=== PATIENT | male | born 1975 | race American Indian/Alaskan Native ===

== ENCOUNTER 2018-11-25 09:40 | Emergency (ER) | payer OTHER ==
[2018-11-25 10:13] VITALS: BP 130/91
--- NOTE | 2018-11-25 10:35 | Cat Scan Report ---
CT head/brain wo con INDICATION: head injury; blurry vision. TECHNIQUE: Routine CT head without contrast. All CT scans at this location are performed using CT dose reduction for ALARA by means of automated exposure control. COMPARISON: None. FINDINGS: BRAIN / INTRACRANIAL CONTENTS: No acute hemorrhage, brain edema, mass effect, or hydrocephalus. Zahraa l hanna-white differentiation. No chronic infarct or focal atrophy. Normal brain volume and ventricula r/sulcal size for age. CALVARIUM/SKULL BASE/CRANIOCERVICAL JUNCTION: No evidence of fracture. ORBITS: No significant abnormality of visualized orbits. SINUSES / MASTOIDS: No significant abnormality of visualized sinuses and mastoid air cells. ADDITIONAL FINDINGS: None. IMPRESSION: 1. No acute post-traumatic intracranial abnormality. Signer Name: Lavelle Duran MD Signed: 11/25/2018 10:31 AM Workstation Name: [id number]
[2018-11-25] MEDS ORDERED: IBUPROFEN 800 MG TAB PO ONE (11:12)
[2018-11-25] MEDS ORDERED: traMADol 50 MG TAB PO ONE (11:13)
--- NOTE | 2018-11-25 11:56 | Emergency Department Report ---
ED Head Trauma HPI - General Chief complaint: Head Injury Stated complaint: FALL INJURY/HEADACHE/VISION BLURR Time Seen by Provider: 11/25/18 10:10 Source: patient Mode of arrival: Ambulatory Limitations: No Limitations - History of Present Illness Initial comments: 43-year-old male presents to ED for evaluation of head injury sustained last night. Patient's daughter last night. With this news, the patient collapsed, hitting his head on the floor. Positive LOC at the time. Patient currently complaining of headache and neck pain. He denies any nausea or vomiting. MD Complaint: head injury -: Last night Location: occipital Loss of Consciousness: yes Severity: severe Consistency: constant Provoking factors: recent /illness of f Other Injuries: neck Associated Symptoms: vision changes, vertigo, neck pain. denies: nausea, vomiting - Related Data Previous Rx's Medication Instructions Recorded Last Taken Type Butalb/Acetamin/Caff 50-325-40 1 tab PO Q6HR PRN #10 tab 11/25/18 Unknown Rx [Fioricet] Meclizine [Antivert] 25 mg PO TID PRN #20 tablet 11/25/18 Unknown Rx Naproxen [Naprosyn] 500 mg PO BID #20 tablet 11/25/18 Unknown Rx Allergies/Adverse reactions: Allergies Allergy/AdvReac Type Severity Reaction Status Date / Time No Known Allergies Allergy Unverified 11/25/18 09:48 ED Review of Systems ROS: Stated complaint: FALL INJURY/HEADACHE/VISION BLURR Other details as noted in HPI Comment: All other systems reviewed and negative Gastrointestinal: denies: nausea, vomiting Musculoskeletal: other (reports neck pain) Neurological: headache. denies: numbness, paresthesias ED Past Medical Hx - Past Medical History Previous Medical History?: No - Surgical History Past Surgical History?: Yes Hx Cholecystectomy: Yes Additional Surgical History: vasectomy - Social History Smoking Status: Never Smoker Substance Use Type: Alcohol - Medications Home Medications: Home Medications Medication Instructions Recorded Confirmed Last Taken Type Butalb/Acetamin/Caff 50-325-40 1 tab PO Q6HR PRN #10 tab 11/25/18 Unknown Rx [Fioricet] Meclizine [Antivert] 25 mg PO TID PRN #20 tablet 11/25/18 Unknown Rx Naproxen [Naprosyn] 500 mg PO BID #20 tablet 11/25/18 Unknown Rx ED Physical Exam - General Limitations: No Limitations General appearance: alert, in no apparent distress - Head Head exam: Present: atraumatic, normocephalic - Eye Eye exam: Present: normal appearance, PERRL, EOMI - ENT ENT exam: Present: mucous membranes moist - Neck Neck exam: Present: normal inspection, tenderness (mild midline tenderness), full ROM - Respiratory Respiratory exam: Present: normal lung sounds bilaterally. Absent: respiratory distress - Cardiovascular Cardiovascular Exam: Present: regular rate, normal rhythm - GI/Abdominal GI/Abdominal exam: Absent: distended - Extremities Exam Extremities exam: Present: normal inspection - Neurological Exam Neurological exam: Present: alert, oriented X3, CN II-XII intact. Absent: motor sensory deficit - Psychiatric Psychiatric exam: Present: normal affect, normal mood - Skin Skin exam: Present: warm, dry, intact, normal color ED Course Vital Signs 11/25/18 11/25/18 11/25/18 09:43 10:11 10:12 Temperature 98.5 F Pulse Rate 77 Respiratory 20 14 14 Rate Blood Pressure 131/94 Blood Pressure 130/91 [Right] O2 Sat by Pulse 96 99 Oximetry 11/25/18 11:56 Temperature Pulse Rate 90 Respiratory 18 Rate Blood Pressure Blood Pressure [Right] O2 Sat by Pulse 96 Oximetry - EKG Data -: EKG Interpreted by Sc EKG shows normal: sinus rhythm, axis, intervals, QRS complexes, ST-T waves Rate: normal Interpretation: no acute changes - Radiology Data Radiology results: report reviewed, image reviewed - Medical Decision Making 43-year-old male closed head injury last night. Head CT is negative for any intracranial injury. X-ray of C-spine is normal. Patient likely has mild concussion. Will give prescription for meclizine and Fioricet for dizziness and headache. Outpatient follow-up advised. Return precautions given. - Differential Diagnosis intracranial injury, concussion, fracture, sprain Critical care attestation.: If time is entered above; I have spent that time in minutes in the direct care of this critically ill patient, excluding procedure time. ED Disposition Clinical Impression: Closed head injury, Acute cervical myofascial strain Disposition: -01 TO HOME OR SELFCARE Is pt being admited?: No Condition: Stable Instructions: Muscle Strain (ED), Concussion (ED), Minor Head Injury (ED) Prescriptions: Meclizine [Antivert] 25 mg PO TID PRN #20 tablet PRN Reason: Vertigo Butalb/Acetamin/Caff 50-325-40 [Fioricet] 1 tab PO Q6HR PRN #10 tab PRN Reason: Headache Naproxen [Naprosyn] 500 mg PO BID #20 tablet Referrals: PRIMARY CARE, [Referring] - 3-5 Days Time of Disposition: 12:50
--- NOTE | 2018-11-25 12:15 | XRay Report ---
Cervical spine, 4 views INDICATION: pain. Fall last night. COMPARISON: None. IMPRESSION: Normal alignment. No significant discogenic DJD or facet arthropathy. No acute osseous or soft tissue abnormality. Signer Name: Jonathan Morrell Jr, MD Signed: 11/25/2018 12:10 PM Workstation Name: [id number]
== END 2018-11-25 13:00 | disposition home or self-care (01) ==
LOC: ED 09:40
DX: S16.1XXA Strain of muscle, fascia and tendon at neck level, initial encounter (principal); Z90.49 Acquired absence of other specified parts of digestive tract; Z90.89 Acquired absence of other organs; R51 Headache; W22.8XXA Striking against or struck by other objects, initial encounter; Y93.89 Activity, other specified; Y92.89 Other specified places as the place of occurrence of the external cause; Y99.8 Other external cause status
CPT/HCPCS: 70450; 72040; 93005; 93010

== ENCOUNTER 2019-08-10 15:26 | Emergency (ER) | payer OTHER ==
[2019-08-10 16:18] LABS: Hemoglobin 13.9 gm/dl (11.8-15.2); Mean Corpuscular Volume 83 fl (84-94); Red Blood Count 5.05 M/mm3 (3.65-5.03)
[2019-08-10 16:19] LABS: Basophils % (Auto) 0.5 % (0.0-1.8); Eosinophils % (Auto) 0.1 % (0.0-4.3); Lymphocytes # (Auto) 0.7 K/mm3 (1.2-5.4); Lymphocytes % (Auto) 27.1 % (13.4-35.0); Mean Corpuscular HGB Conc 33 % (32-34); Monocytes % (Auto) 11.3 % (0.0-7.3); Platelet Count 164 K/mm3 (140-440); Red Cell Distribution Width 13.7 % (13.2-15.2)
[2019-08-10 16:21] LABS: Monocytes # (Auto) 0.3 K/mm3 (0.0-0.8)
[2019-08-10 16:34] LABS: BUN/Creatinine Ratio 6; Blood Urea Nitrogen 5 mg/dL (9-20); Calcium 9.4 mg/dL (8.4-10.2)
[2019-08-10 16:37] LABS: Hemolysis Index 4
[2019-08-10 17:39] LABS: Bilirubin,Urine NEG (Negative); Blood,Urine NEG (Negative); Color,Urine Yellow (Yellow); Mucus,Urine FEW /HPF; Protein,Urine <15 mg/dL mg/dL (Negative); RBC,Urine < 1.0 /HPF (0.0-6.0)
[2019-08-10 18:03] LABS: Amphetamine Screen,Urine PRESUMPTIVE NEGATIVE; Benzodiazepines Screen,Urine PRESUMPTIVE NEGATIVE; Cannabinoid Screen,Urine PRESUMPTIVE NEGATIVE; Cocaine Screen,Urine PRESUMPTIVE NEGATIVE; Methadone Screen,Urine PRESUMPTIVE NEGATIVE; Opiate Screen,Urine PRESUMPTIVE NEGATIVE
[2019-08-10] MEDS ORDERED: POTASSIUM CHLORIDE ER 20 MEQ TAB PO ONE (20:55)
[2019-08-10] MEDS ORDERED: SODIUM CHLORIDE 0.9% 1000 ML 1,000 ML IV ONE (21:01)
[2019-08-10] MEDS ORDERED: MORPHINE 4 MG/1 ML INJ IV ONE (21:01)
[2019-08-10] MEDS ORDERED: LORazepam 2 MG/ML VIAL IV PRN ×3 (21:01)
[2019-08-10] MEDS ORDERED: ONDANSETRON 4 MG/2 ML INJ IV ONE (21:01)
--- NOTE | 2019-08-10 21:03 | Emergency Department Report ---
ED General Adult HPI - General Chief complaint: Medical Clearance Stated complaint: ETOH WITHDRAWL PUI?: No Time Seen by Provider: 08/10/19 20:49 Source: patient, RN notes reviewed, old records reviewed Mode of arrival: Ambulatory Limitations: No Limitations - History of Present Illness Initial comments: This patient is a pleasant, calm and cooperative 44-year-old gentleman who is not known to myself previously. He reports a history of alcohol dependence. His last alcoholic beverage was at 11:00 this morning. He cannot recall the name of his primary care doctor. He presents to the ER with a complaint of epigastric and right upper quadrant pain, no complaint of headache, neck pain, chest pain, no complaint of shortness of breath, feels shaky and tremulous and anxious. He is not homicidal or suicidal. He is never had a withdrawal seizure that he is aware of. No irritative or obstructive urinary symptoms. No testicular pain. No muscle aches. Abdominal pain is throbbing and aching, increases with palpation, and decreases with rest, and does not radiate anywhere. -: Gradual, hour(s) Location: abdomen Radiation: other Quality: other Consistency: other Improves with: other Worsens with: other - Related Data Previous Rx's Medication Instructions Recorded Last Taken Type Famotidine [Pepcid] 20 mg PO BID #60 tablet 08/10/19 Unknown Rx Emmy Root [Emmy] 250 mg PO QID PRN #30 capsule 08/10/19 Unknown Rx Metoclopramide [Reglan] 10 mg PO QID PRN #30 tablet 08/10/19 Unknown Rx Multivitamin with Folic Acid [Cvs 400 mcg PO QDAY #30 tablet 08/10/19 Unknown Rx One Daily Essential Tablet] Potassium Chloride 20 meq PO QDAY #14 packet 08/10/19 Unknown Rx chlordiazePOXIDE [Librium] 25 mg PO Q6H PRN #25 capsule 08/10/19 Unknown Rx Allergies Allergy/AdvReac Type Severity Reaction Status Date / Time No Known Allergies Allergy Unverified 11/25/18 09:48 ED Review of Systems ROS: Stated complaint: ETOH WITHDRAWL Other details as noted in HPI Constitutional: malaise. denies: fever, weakness Eyes: denies: vision change ENT: denies: epistaxis Respiratory: denies: cough Cardiovascular: denies: chest pain Gastrointestinal: abdominal pain, nausea. denies: vomiting Genitourinary: denies: dysuria Musculoskeletal: denies: myalgia Skin: denies: lesions Neurological: weakness Psychiatric: anxiety. denies: homicidal thoughts, suicidal thoughts Hematological/Lymphatic: denies: easy bleeding ED Past Medical Hx - Past Medical History Previous Medical History?: Yes Hx Psychiatric Treatment: Yes (ETOH) - Surgical History Hx Cholecystectomy: Yes Additional Surgical History: vasectomy - Social History Smoking Status: Never Smoker Substance Use Type: Alcohol - Medications Home Medications: Home Medications Medication Instructions Recorded Confirmed Last Taken Type Famotidine [Pepcid] 20 mg PO BID #60 tablet 08/10/19 Unknown Rx Emmy Root [Emmy] 250 mg PO QID PRN #30 capsule 08/10/19 Unknown Rx Metoclopramide [Reglan] 10 mg PO QID PRN #30 tablet 08/10/19 Unknown Rx Multivitamin with Folic Acid [Cvs 400 mcg PO QDAY #30 tablet 08/10/19 Unknown Rx One Daily Essential Tablet] Potassium Chloride 20 meq PO QDAY #14 packet 08/10/19 Unknown Rx chlordiazePOXIDE [Librium] 25 mg PO Q6H PRN #25 capsule 08/10/19 Unknown Rx ED Physical Exam - General Limitations: No Limitations General appearance: alert, anxious - Head Head exam: Present: atraumatic, normocephalic - Eye Eye exam: Present: normal appearance, EOMI. Absent: nystagmus - ENT ENT exam: Present: normal exam, normal orophraynx, mucous membranes moist, normal external ear exam, other (No tongue fasciculations noted) - Neck Neck exam: Present: normal inspection, full ROM. Absent: tenderness, meningismus - Respiratory Respiratory exam: Present: normal lung sounds bilaterally. Absent: respiratory distress - Cardiovascular Cardiovascular Exam: Present: normal rhythm, tachycardia, normal heart sounds. Absent: systolic murmur, diastolic murmur, rubs, gallop - GI/Abdominal GI/Abdominal exam: Present: soft, tenderness, normal bowel sounds, other (There is epigastric and right upper quadrant tenderness noted). Absent: distended, guarding, rebound, rigid, pulsatile mass - Rectal Rectal exam: Present: deferred - Extremities Exam Extremities exam: Present: normal inspection, full ROM, other (2+ pulses noted in the bilateral upper and lower extremities. There is no palpable cord. neg ative Homans sign. Muscular compartments are soft. The pelvis is stable.). Absent: pedal edema, calf tenderness - Back Exam Back exam: Present: normal inspection, full ROM. Absent: tenderness, CVA tenderness (R), CVA tenderness (L), paraspinal tenderness, vertebral tenderness - Neurological Exam Neurological exam: Present: alert, oriented X3, other (No facial droop. Tongue midline. Extraocular movements intact bilaterally. Facial sensation intact to light touch in V1, V2, V3 distribution bilaterally. 5 and a 5 strength in 4 extremities. Sensation intact to light touch in 4 extremities.). Absent: motor sensory deficit - Psychiatric Psychiatric exam: Present: anxious. Absent: homicidal ideation, suicidal ideation - Skin Skin exam: Present: warm, dry, intact, normal color. Absent: rash ED Course Vital Signs 08/10/19 08/10/19 15:46 22:33 Temperature 98.6 F 98.3 F Pulse Rate 103 H 74 Respiratory 18 21 Rate Blood Pressure 117/87 Blood Pressure 129/98 [Right] O2 Sat by Pulse 100 99 Oximetry - Reevaluation(s) Reevaluation #1: 08/10/19 21:44 Differential diagnosis, including but not limited to: Pancreatitis, alcoholic hepatitis, dehydration, electrolyte derangement Assessment and plan: 44-year-old gentleman, who is afebrile, with reassuring vital signs, clinically sober at this time, with resolved tachycardia, without tremors, or tongue fasciculations, clinical picture at this time is not consistent with alcohol withdrawal. Suspect alcoholic pancreatitis versus alcoholic hepatitis. We will treat his symptoms, and obtain CT scan of the abdomen pelvis. He has a negative Aguilar sign. This is unlikely to be cholecystitis. There may also be a component of alcoholic gastritis. He does not meet 1013 criteria at this time. We will treat his symptoms, and reassess after acquisition of CT scan of the abdomen pelvis. Liver panel is reviewed and appreciated, consistent with alcoholic liver disease. Reevaluation #2: 08/10/19 23:09 Tachycardia resolved. No active vomiting. CT scan reviewed and appreciated. Stigmata of chronic Chronic alcoholism noted. Patient suitable for trial of outpatient management at this time. We will discharged with Pepcid, potassium supplementation, multivitamin , nausea medication, and Librium. He is suitable to follow-up with an outpatient primary care doctor, or food general manager. The patient states that he feels markedly improved, he has had no active vomiting, and his belly is soft and benign on repeat examination. He states he is encouraged to cease alcohol consumption. 08/10/19 23:11 08/10/19 23:18 ED Medical Decision Making - Lab Data Result diagrams: 08/10/19 15:57 08/10/19 15:57 Vital Signs 08/10/19 15:46 Temperature 98.6 F Pulse Rate 103 H Respiratory 18 Rate Blood Pressure 117/87 O2 Sat by Pulse 100 Oximetry Lab Results 08/10/19 08/10/19 08/10/19 Range/Units 15:57 15:57 15:57 WBC (4.5-11.0) K/mm3 RBC (3.65-5.03) M/mm3 Hgb (11.8-15.2) gm/dl Hct (35.5-45.6) % MCV (84-94) fl MCH (28-32) pg MCHC (32-34) % RDW (13.2-15.2) % Plt Count (140-440) K/mm3 Lymph % (Auto) (13.4-35.0) % [place] % (Auto) (0.0-7.3) % Eos % (Auto) (0.0-4.3) % Baso % (Auto) (0.0-1.8) % Lymph # (1.2-5.4) K/mm3 [place] # (0.0-0.8) K/mm3 Eos # (0.0-0.4) K/mm3 Baso # (0.0-0.1) K/mm3 Seg Neutrophils % (40.0-70.0) % Seg Neutrophils # (1.8-7.7) K/mm3 PT (12.2-14.9) Sec. INR (0.87-1.13) Sodium 138 (137-145) mmol/L Potassium 3.3 L (3.6-5.0) mmol/L Chloride 98.3 (98-107) mmol/L Carbon Dioxide 24 (22-30) mmol/L Anion Gap 19 mmol/L BUN 5 L (9-20) mg/dL Creatinine 0.8 (0.8-1.5) mg/dL Estimated GFR > 60 ml/min BUN/Creatinine Ratio 6 % Glucose 112 H (75-100) mg/dL Calcium 9.4 (8.4-10.2) mg/dL Magnesium (1.7-2.3) mg/dL Total Bilirubin (0.1-1.2) mg/dL Direct Bilirubin (0-0.2) mg/dL Indirect Bilirubin mg/dL AST (5-40) units/L ALT (7-56) units/L Alkaline Phosphatase (35-129) units/L Total Creatine Kinase (55-170) units/L Total Protein (6.3-8.2) g/dL Albumin (3.9-5) g/dL Albumin/Globulin Ratio % Lipase (13-60) units/L Urine Color (Yellow) Urine Turbidity (Clear) Urine pH (5.0-7.0) Ur Specific [place] (1.003-1.030) Urine Protein (Negative) mg/dL Urine Glucose (UA) (Negative) mg/dL Urine Ketones (Negative) mg/dL Urine Blood (Negative) Urine Nitrite (Negative) Urine Bilirubin (Negative) Urine Urobilinogen (<2.0) mg/dL Ur Leukocyte Esterase (Negative) Urine WBC (Auto) (0.0-6.0) /HPF Urine RBC (Auto) (0.0-6.0) /HPF Urine Mucus /HPF Salicylates < 0.3 L (2.8-20.0) mg/dL Urine Opiates Screen Urine Methadone Screen Acetaminophen < 5.0 L (10.0-30.0) ug/mL Ur Barbiturates Screen Ur Phencyclidine Scrn Ur Amphetamines Screen U Benzodiazepines Scrn Urine Cocaine Screen U Marijuana (THC) Screen Drugs of Abuse Note Plasma/Serum Alcohol (0-0.07) % 08/10/19 08/10/19 08/10/19 Range/Units 15:57 15:57 15:57 WBC 2.4 L (4.5-11.0) K/mm3 RBC 5.05 H (3.65-5.03) M/mm3 Hgb 13.9 (11.8-15.2) gm/dl Hct 42.0 (35.5-45.6) % MCV 83 L (84-94) fl MCH 28 (28-32) pg MCHC 33 (32-34) % RDW 13.7 (13.2-15.2) % Plt Count 164 (140-440) K/mm3 Lymph % (Auto) 27.1 (13.4-35.0) % [place] % (Auto) 11.3 H (0.0-7.3) % Eos % (Auto) 0.1 (0.0-4.3) % Baso % (Auto) 0.5 (0.0-1.8) % Lymph # 0.7 L (1.2-5.4) K/mm3 [place] # 0.3 (0.0-0.8) K/mm3 Eos # 0.0 (0.0-0.4) K/mm3 Baso # 0.0 (0.0-0.1) K/mm3 Seg Neutrophils % 61.0 (40.0-70.0) % Seg Neutrophils # 1.5 L (1.8-7.7) K/mm3 PT (12.2-14.9) Sec. INR (0.87-1.13) Sodium (137-145) mmol/L Potassium (3.6-5.0) mmol/L Chloride (98-107) mmol/L Carbon Dioxide (22-30) mmol/L Anion Gap mmol/L BUN (9-20) mg/dL Creatinine (0.8-1.5) mg/dL Estimated GFR ml/min BUN/Creatinine Ratio % Glucose (75-100) mg/dL Calcium (8.4-10.2) mg/dL Magnesium 2.00 (1.7-2.3) mg/dL Total Bilirubin (0.1-1.2) mg/dL Direct Bilirubin (0-0.2) mg/dL Indirect Bilirubin mg/dL AST (5-40) units/L ALT (7-56) units/L Alkaline Phosphatase (35-129) units/L Total Creatine Kinase 262 H (55-170) units/L Total Protein (6.3-8.2) g/dL Albumin (3.9-5) g/dL Albumin/Globulin Ratio % Lipase (13-60) units/L Urine Color (Yellow) Urine Turbidity (Clear) Urine pH (5.0-7.0) Ur Specific [place] (1.003-1.030) Urine Protein (Negative) mg/dL Urine Glucose (UA) (Negative) mg/dL Urine Ketones (Negative) mg/dL Urine Blood (Negative) Urine Nitrite (Negative) Urine Bilirubin (Negative) Urine Urobilinogen (<2.0) mg/dL Ur Leukocyte Esterase (Negative) Urine WBC (Auto) (0.0-6.0) /HPF Urine RBC (Auto) (0.0-6.0) /HPF Urine Mucus /HPF Salicylates (2.8-20.0) mg/dL Urine Opiates Screen Urine Methadone Screen Acetaminophen (10.0-30.0) ug/mL Ur Barbiturates Screen Ur Phencyclidine Scrn Ur Amphetamines Screen U Benzodiazepines Scrn Urine Cocaine Screen U Marijuana (THC) Screen Drugs of Abuse Note Plasma/Serum Alcohol 0.16 H (0-0.07) % 08/10/19 08/10/19 08/10/19 Range/Units 15:57 21:07 Unknown WBC (4.5-11.0) K/mm3 RBC (3.65-5.03) M/mm3 Hgb (11.8-15.2) gm/dl Hct (35.5-45.6) % MCV (84-94) fl MCH (28-32) pg MCHC (32-34) % RDW (13.2-15.2) % Plt Count (140-440) K/mm3 Lymph % (Auto) (13.4-35.0) % [place] % (Auto) (0.0-7.3) % Eos % (Auto) (0.0-4.3) % Baso % (Auto) (0.0-1.8) % Lymph # (1.2-5.4) K/mm3 [place] # (0.0-0.8) K/mm3 Eos # (0.0-0.4) K/mm3 Baso # (0.0-0.1) K/mm3 Seg Neutrophils % (40.0-70.0) % Seg Neutrophils # (1.8-7.7) K/mm3 PT 13.5 (12.2-14.9) Sec. INR 1.05 (0.87-1.13) Sodium (137-145) mmol/L Potassium (3.6-5.0) mmol/L Chloride (98-107) mmol/L Carbon Dioxide (22-30) mmol/L Anion Gap mmol/L BUN (9-20) mg/dL Creatinine (0.8-1.5) mg/dL Estimated GFR ml/min BUN/Creatinine Ratio % Glucose (75-100) mg/dL Calcium (8.4-10.2) mg/dL Magnesium (1.7-2.3) mg/dL Total Bilirubin 2.00 H (0.1-1.2) mg/dL Direct Bilirubin 0.5 H (0-0.2) mg/dL Indirect Bilirubin 1.5 mg/dL AST 128 H (5-40) units/L ALT 64 H (7-56) units/L Alkaline Phosphatase 107 (35-129) units/L Total Creatine Kinase (55-170) units/L Total Protein 7.2 (6.3-8.2) g/dL Albumin 4.5 (3.9-5) g/dL Albumin/Globulin Ratio 1.7 % Lipase 65 H (13-60) units/L Urine Color Yellow (Yellow) Urine Turbidity Clear (Clear) Urine pH 6.0 (5.0-7.0) Ur Specific [place] 1.011 (1.003-1.030) Urine Protein <15 mg/dl (Negative) mg/dL Urine Glucose (UA) Neg (Negative) mg/dL Urine Ketones Neg (Negative) mg/dL Urine Blood Neg (Negative) Urine Nitrite Neg (Negative) Urine Bilirubin Neg (Negative) Urine Urobilinogen 2.0 (<2.0) mg/dL Ur Leukocyte Esterase Neg (Negative) Urine WBC (Auto) 1.0 (0.0-6.0) /HPF Urine RBC (Auto) < 1.0 (0.0-6.0) /HPF Urine Mucus Few /HPF Salicylates (2.8-20.0) mg/dL Urine Opiates Screen Urine Methadone Screen Acetaminophen (10.0-30.0) ug/mL Ur Barbiturates Screen Ur Phencyclidine Scrn Ur Amphetamines Screen U Benzodiazepines Scrn Urine Cocaine Screen U Marijuana (THC) Screen Drugs of Abuse Note Plasma/Serum Alcohol (0-0.07) % 08/10/19 Range/Units Unknown WBC (4.5-11.0) K/mm3 RBC (3.65-5.03) M/mm3 Hgb (11.8-15.2) gm/dl Hct (35.5-45.6) % MCV (84-94) fl MCH (28-32) pg MCHC (32-34) % RDW (13.2-15.2) % Plt Count (140-440) K/mm3 Lymph % (Auto) (13.4-35.0) % [place] % (Auto) (0.0-7.3) % Eos % (Auto) (0.0-4.3) % Baso % (Auto) (0.0-1.8) % Lymph # (1.2-5.4) K/mm3 [place] # (0.0-0.8) K/mm3 Eos # (0.0-0.4) K/mm3 Baso # (0.0-0.1) K/mm3 Seg Neutrophils % (40.0-70.0) % Seg Neutrophils # (1.8-7.7) K/mm3 PT (12.2-14.9) Sec. INR (0.87-1.13) Sodium (137-145) mmol/L Potassium (3.6-5.0) mmol/L Chloride (98-107) mmol/L Carbon Dioxide (22-30) mmol/L Anion Gap mmol/L BUN (9-20) mg/dL Creatinine (0.8-1.5) mg/dL Estimated GFR ml/min BUN/Creatinine Ratio % Glucose (75-100) mg/dL Calcium (8.4-10.2) mg/dL Magnesium (1.7-2.3) mg/dL Total Bilirubin (0.1-1.2) mg/dL Direct Bilirubin (0-0.2) mg/dL Indirect Bilirubin mg/dL AST (5-40) units/L ALT (7-56) units/L Alkaline Phosphatase (35-129) units/L Total Creatine Kinase (55-170) units/L Total Protein (6.3-8.2) g/dL Albumin (3.9-5) g/dL Albumin/Globulin Ratio % Lipase (13-60) units/L Urine Color (Yellow) Urine Turbidity (Clear) Urine pH (5.0-7.0) Ur Specific [place] (1.003-1.030) Urine Protein (Negative) mg/dL Urine Glucose (UA) (Negative) mg/dL Urine Ketones (Negative) mg/dL Urine Blood (Negative) Urine Nitrite (Negative) Urine Bilirubin (Negative) Urine Urobilinogen (<2.0) mg/dL Ur Leukocyte Esterase (Negative) Urine WBC (Auto) (0.0-6.0) /HPF Urine RBC (Auto) (0.0-6.0) /HPF Urine Mucus /HPF Salicylates (2.8-20.0) mg/dL Urine Opiates Screen Presumptive negative Urine Methadone Screen Presumptive negative Acetaminophen (10.0-30.0) ug/mL Ur Barbiturates Screen Presumptive negative Ur Phencyclidine Scrn Presumptive negative Ur Amphetamines Screen Presumptive negative U Benzodiazepines Scrn Presumptive negative Urine Cocaine Screen Presumptive negative U Marijuana (THC) Screen Presumptive negative Drugs of Abuse Note Disclamer Plasma/Serum Alcohol (0-0.07) % - EKG Data -: EKG Interpreted by N[place] EKG shows normal: sinus rhythm Rate: normal - EKG Data Interpretation: unchanged when compared t 08/10/19 21:44 The EKG today appears to be unchanged when compared to prior EKG from 11/25/2018 The EKG shows a sinus rhythm, 84 bpm, left axis deviation, left anterior fascicular block, intervals within normal limits, and low voltage. EKG is abnormal. The EKG is not a STEMI. - Radiology Data Radiology results: pending, report reviewed, image reviewed Report Referring Physician: DEEDEE MARCUS Patient Name: TJ LEOS Date of : 1975 Sex: Male Report Date: 2019-08-10 Report Status: Finalized Findings [facility] [address] [place] [address] Cat Scan Report Signed Patient: TJ LEOS MR#: [id number] : 1975 Acct:[id number] Age/Sex: 44 / M ADM Date: 08/10/19 Loc: ED Attending Dr: Ordering Physician: DEEDEE MARCUS MD Date of Service: 08/10/19 Procedure(s): CT abdomen pelvis w con Accession Number(s): [id number] cc: DEEDEE MARCUS MD CT ABDOMEN AND PELVIS WITH CONTRAST INDICATION: MAIN: abd pain etoh withdrawal, pancreatitis 100CC [id number]. TECHNIQUE: Axial CT images were obtained through the abdomen and pelvis after 100 cc Omnipaque [address] scans at this location are performed using CT dose reduction for ALARA by means of automated exposure control. COMPARISON: None available. FINDINGS: LOWER CHEST: No significant abnormality. LIVER: Markedly enlarged liver measuring 25 cm in length with marked decrease attenuation characteristic for steatosis. Small round 11 mm hyperdense lesion within the hepatic dome axial series 2 image 29. GALLBLADDER: No significant abnormality. BILE DUCTS: No significant abnormality. PANCREAS: No significant abnormality. Specifically, no CT evidence for acute or chronic pancreatitis. SPLEEN: No significant abnormality. Measures 11.4 cm in length. ADRENALS: No significant abnormality. RIGHT KIDNEY and URETER: No significant abnormality. LEFT KIDNEY and URETER: No significant abnormality. STOMACH and SMALL BOWEL: No significant abnormality. COLON: No significant abnormality. APPENDIX: No significant abnormality. PERITONEUM: No free fluid. No free air. No fluid collection. LYMPH NODES: No significant adenopathy. AORTA and ARTERIES: No significant abnormality. IVC and VEINS: No significant abnormality. URINARY BLADDER: No significant abnormality. REPRODUCTIVE ORGANS: No significant abnormality. ADDITIONAL FINDINGS: None. SKELETAL SYSTEM: No significant abnormality. IMPRESSION: 1. No acute inflammatory process or bowel obstruction. 2. Markedly enlarged liver with severe hepatic steatosis. 3. Small indeterminate 1 cm hyperdense lesion in the right hepatic dome. Recommend three-phase CT to confirm presence or absence of hemangioma. Signer Name: Tobias Lundberg MD Signed: 08/10/2019 10:36 PM Workstation Name: [id number] Transcribed By: TL Dictated By: Tobias Lundberg MD Electronically Authenticated By: Tobias Lundberg MD Signed Date/Time: 08/10/192235 DD/ 30 TD/TT: Critical care attestation.: If time is entered above; I have spent that time in minutes in the direct care of this critically ill patient, excluding procedure time. ED Disposition Clinical Impression: Alcohol dependence, Alcoholic liver disease, Hypokalemia Disposition: DC-01 TO HOME OR SELFCARE Is pt being admited?: No Does the pt Need Aspirin: No Condition: Stable Instructions: Cirrhosis (ED), Abuse of Alcohol (ED) Additional Instructions: Recommend that patient discontinue/minimize consumption of alcohol. Laboratory studies demonstrated evidence of long-term use of alcohol, including decreased white blood cell count, and increase in liver function tests. Long-term use of alcohol may cause liver failure, and can cause disability, paralysis, loss of quality of life, , and organ failure. Take the Reglan, emmy medications as needed for nausea and vomiting. Take the multivitamins as directed. Take the Pepcid as needed for abdominal pain and discomfort. Take the potassium supplementation as directed. Avoid consumption of Motrin, ibuprofen, Naprosyn, Aleve, heavy and spicy foods. Minimize consumption of alcohol. Take the Librium medication as needed for alcohol withdrawal/shaking. Please follow-up with a primary care doctor or food general manager within the next 2 weeks for the aforementioned conditions. Please return to the emergency room right away with new pain, worsening pain, migration of pain, projectile vomiting, change in mental status, confusion, homicidality, suicidality, inability to tolerate liquid feeds. Please have a primary care doctor or food general manager contact the medical records department to obtain copies of laboratory studies and CT scan results, and to follow-up on nonemergent incidental abnormalities that were noted today. Prescriptions: Multivitamin with Folic Acid [[facility]vs One Daily Essential Tablet] 400 mcg PO QDAY #30 tablet Emmy Root [Emmy] 250 mg PO QID PRN #30 capsule PRN Reason: Nausea chlordiazePOXIDE [Librium] 25 mg PO Q6H PRN #25 capsule PRN Reason: Alcohol Withdrawal Famotidine [Pepcid] 20 mg PO BID #60 tablet Potassium Chloride 20 meq PO QDAY #14 packet Metoclopramide [Reglan] 10 mg PO QID PRN #30 tablet PRN Reason: Nausea Referrals: GISELLE CAMERON MD [Staff Physician] - 3-5 Days [facility] [Provider Group] - 3-5 Days
[2019-08-10 21:31] LABS: Albumin 4.5 g/dL (3.9-5); Bilirubin,Direct 0.5 mg/dL (0-0.2)
[2019-08-10 21:38] LABS: INR 1.05 (0.87-1.13)
[2019-08-10] MEDS ORDERED: SUCRALFATE 1 GM/10 ML ORAL LIQD PO ONE (21:45)
[2019-08-10] MEDS ORDERED: PANTOPRAZOLE 40 MG TAB PO ONE (21:45)
[2019-08-10] MEDS ORDERED: D5W/0.45% NACL 1,000 ML IV SCH (22:00)
--- NOTE | 2019-08-10 22:40 | Cat Scan Report ---
CT ABDOMEN AND PELVIS WITH CONTRAST INDICATION: MAIN: abd pain etoh withdrawal, pancreatitis 100CC [id number]. TECHNIQUE: Axial CT images were obtained through the abdomen and pelvis after 100 cc Omnipaque [address] scans at this location are performed using CT dose reduction for ALARA by means of automated exposure control. COMPARISON: None available. FINDINGS: LOWER CHEST: No significant abnormality. LIVER: Markedly enlarged liver measuring 25 cm in length with marked decrease attenuation characteris tic for steatosis. Small round 11 mm hyperdense lesion within the hepatic dome axial series 2 image 2 9. GALLBLADDER: No significant abnormality. BILE DUCTS: No significant abnormality. PANCREAS: No significant abnormality. Specifically, no CT evidence for acute or chronic pancreatitis. SPLEEN: No significant abnormality. Measures 11.4 cm in length. ADRENALS: No significant abnormality. RIGHT KIDNEY and URETER: No significant abnormality. LEFT KIDNEY and URETER: No significant abnormality. STOMACH and SMALL BOWEL: No significant abnormality. COLON: No significant abnormality. APPENDIX: No significant abnormality. PERITONEUM: No free fluid. No free air. No fluid collection. LYMPH NODES: No significant adenopathy. AORTA and ARTERIES: No significant abnormality. IVC and VEINS: No significant abnormality. URINARY BLADDER: No significant abnormality. REPRODUCTIVE ORGANS: No significant abnormality. ADDITIONAL FINDINGS: None. SKELETAL SYSTEM: No significant abnormality. IMPRESSION: 1. No acute inflammatory process or bowel obstruction. 2. Markedly enlarged liver with severe hepatic steatosis. 3. Small indeterminate 1 cm hyperdense lesion in the right hepatic dome. Recommend three-phase CT to confirm presence or absence of hemangioma. Signer Name: Tobias Lundberg MD Signed: 08/10/2019 10:36 PM Workstation Name: [id number]
[2019-08-11 00:06] VITALS: BP 123/92
== END 2019-08-11 00:06 | disposition home or self-care (01) ==
LOC: ED 15:26
DX: F10.20 Alcohol dependence, uncomplicated (principal); K70.9 Alcoholic liver disease, unspecified; E87.6 Hypokalemia; Z79.899 Other long term (current) drug therapy
CPT/HCPCS: 36415; 74177; 80048; 80076; 80307; 81001; 82550; 83690; 83735; 85025; 85610; 93005; 96374; 96375; 99285; J2270; J2405; J7030; Q9967; 80320; G0480